=== PATIENT | female | born 1970 | race Caucasian/White ===

== ENCOUNTER 2018-01-31 00:31 | Outpatient (CLI) | payer MEDICAID, SELFPAY ==
--- NOTE | 2018-01-31 08:47 | DI.MAMMO_ITS ---
SYMPTOM/DIAGNOSIS: SCREENING, [facility], Z00.00 MAMMOGRAMS: Mammograms were interpreted according to the usual protocol including computer analysis with CAD system, tomosynthesis and C view imaging. The breast tissue is of moderate radiodensity. There is no evidence of a mass. There are no suspicious calcifications and there has been no significant interval change when compared with prior images. SUMMARY: No evidence of malignancy, category 1. Yearly screening mammography is recommended. Breast density, category B. SA ASSESSMENT OF FINDINGS: Negative. Category 1. Patient will receive a letter notifying them of these results. BI-RADS category B. There are scattered areas of fibroglandular density.
== END 2018-01-31 00:51 ==
PROVIDERS: PCP Family Medicine; Visit Provider Family Medicine
DX: Z12.31 Encounter for screening mammogram for malignant neoplasm of breast (principal)
CPT/HCPCS: 77063; 77067

== ENCOUNTER 2018-01-31 12:31 | Outpatient (REF) | payer MEDICAID, SELFPAY ==
--- NOTE | 2018-01-31 15:00 | PAPFT_PTH ---
PATIENT: Perla Pineda LOC: NCN #:[id number] AGE/SX: 47/F ROOM: RE01/31/[address]: Viv Simental V : 1970 BED: DIS: 01/31/2018 SPEC #: [id number] RECD: 02/01/18 13:02 STATUS: AWILDA MENDOZA #: [id number] SHEYLA: 01/31/18 15:[address]: Viv Simental V DEPT: [facility] Cytology RECD BY: Chacha Sterling Tissues: 1 - CX/ENDOCX FOR PAP SMEARS Procedures: PAP THIN PREP/UVM Screening HPV DNA PROBE Comments: [id number]
== END 2018-01-31 12:51 ==
LOC: NCHCN 12:31
PROVIDERS: PCP Family Medicine; Visit Provider Family Medicine
DX: Z12.4 Encounter for screening for malignant neoplasm of cervix (principal); Z11.51 Encounter for screening for human papillomavirus (HPV); Z01.419 Encounter for gynecological examination (general) (routine) without abnormal findings
CPT/HCPCS: 88142; 87624

== ENCOUNTER 2019-02-03 19:31 | Emergency (ER) | payer MEDICAID, SELFPAY ==
[2019-02-03 19:37] VITALS: BP 159/99; PULSE 99; RESP 16; TEMP 36.5; O2SAT 98
--- NOTE | 2019-02-03 20:02 | ED.GENADUL_ITS ---
Discharge Plan Disposition Patient Disposition: HOME Condition: Good Discharge Details Chief Complaint: RespSymp Clinical Impression: Cough Primary Care Provider: Viv Simental V ED Provider: Argenis Lovell Home Meds and New Rx's Prescriptions: New benzonatate [Tessalon Perles] 100 mg capsule 100 mg PO TID PRN (Reason: cough) Qty: 14 RF: 0 Discharge Instructions Instructions: Benzonatate (By mouth), Albuterol (By breathing), Acute Cough (ED) Additional Instructions: Encourage hydration. Tylenol and ibuprofen as needed for discomfort. You may use the albuterol inhaler 2 puffs every 6 hours as needed for wheezing or feeling tight. May use the Tessalon Perles 100 mg every 8 hours as needed for cough. If you develop difficulty breathing, shortness of breath, rule to stay hydrated or the new/worsening symptoms please seek care urgently once again. Otherwise, please follow-up with primary care in 1 week if not improved. Referrals: Viv Simental MD [Primary Care Provider] - Medical Decision Making Patient is a 48-year-old otherwise healthy female presents today with chief complaint of cough x3 days. Denies any fevers or chills. Is not feeling short of breath. States the cough is worse when lying supine at night when she first wakes in the morning. States she has multitude of his sick contacts, patient does own a daycare. She endorses some upper abdominal discomfort with cough but feels this is muscular. Is not having any symptoms of abdominal pain at this time. No difficulty breathing, no chest pain. Denies any HEENT complaints. On exam, lungs are clear. She apperas nontoxic. Her symptoms of feeling tight with personal question of diagnosis of asthma, has been wondering if she may benefit from albuterol inhaler. Will send home with albuterol inhaler with spacer, nursing to do instructions. We discussed the usage of this. Also prescribe Tessalon Perles to help with symptomatic management. Encourage hydration. She is given strict return precautions. All of her questions and concerns were addressed she is in agreement this plan she will follow-up with her primary if not improving in 1 week. HPI General Mode of arrival: ambulatory . Date/Time Provider Initiated Documentation: 02/03/19 20:02 . Limitations to Documentation: no limitations . Information obtained by: patient, family (son) and RN notes reviewed . History of Present Illness 48 year old F presents to the emergency department with the chief complaint of cough, described as mild, Quality is described as aching (associates muscle pain in upper abdomen with coughing, no pain now), Patient started experiencing this day(s) (3) and it has been constant. No relieving factors improve symptom(s), Other factors that worsen symptoms (worse laying supine and when first waking up in the morning) . Patient notes cough and shortness of breath (reports feeling tight when coughing episodes); denies chest pain, diaphoresis, fever/chills, headaches, loss of appetite, nausea/vomiting, rash and weakness. Patient did receive the following treatments prior to arrival, none Related Data Home Medications Medication Instructions Recorded Confirmed benzonatate [Tessalon Perles] 100 mg PO TID PRN #14 cap 02/03/19 Previous Rx's Medication Instructions Recorded benzonatate [Tessalon Perles] 100 mg PO TID PRN #14 cap 02/03/19 Allergies Allergy/AdvReac Type Severity Reaction Status Date / Time No Known Allergies Allergy Unverified 02/03/19 19:40 General Stated Complaint: RespSymp SUSHANT: 4 Review of Systems Constitutional Constitutional: Reports as per HPI and Denies headache(s) Eyes Eyes: Reports as per HPI, Denies eye discharge and Denies irritation ENT Ears, Nose, Mouth, and Throat: Reports as per HPI and Denies headache(s) Cardiovascular Cardiovascular: Reports as per HPI, Denies chest pain and Denies dyspnea Respiratory Respiratory: Reports as per HPI and Denies dyspnea Gastrointestinal Gastrointestinal: Reports as per HPI, Denies abdominal pain, Denies change in bowel habits, Denies nausea and Denies vomiting Integumentary/Breasts Skin/Breast: Reports as per HPI and Denies rash Neurologic Neurologic: Reports as per HPI and Denies headache(s) [facility] Social History Smoking/Tobacco Use Status: Never Alcohol Intake: current Alcohol Intake frequency: a few times a month Substance use type: does not use Do you feel safe at home: Yes Do you feel safe in your relationship?: Yes Exam Const General: cooperative, healthy appearing, comfortable, no acute distress, well developed and well groomed Nutritional Appearance: well nourished and overweight Orientation: alert and awake [facility] Head: normal to inspection, normocephalic and atraumatic Ears: hearing grossly normal bilaterally, external ears normal and TM's normal bilaterally General nose exam: external nose normal and nares normal Face and sinus: normal facial exam, sinuses nontender and face symmetric Mouth: oral mucosae normal, lip normal, tongue normal, oropharynx normal and moist mucous membranes Teeth and gingiva: dentition normal Throat: posterior oropharynx normal, tonsils normal and uvula midline Eyes General: appearance normal, both eyes and all related structures Neck Neck: normal visual inspection, full ROM, no lymphadenopathy and no meningeal signs Resp Effort & Inspection: normal respiratory effort, able to speak in complete sentences and no respiratory distress Auscultation: clear to auscultation bilaterally, no rales, no rhonchi and no wheezes Cardio Rate: regular rate Rhythm: regular rhythm Heart Sounds: S1 normal and S2 normal Skin General skin exam: no rashes or lesions noted Neuro General: alert and awake Cognition: normal cognition Speech: speech normal Gait: normal gait Psych Appearance: grossly normal and well kempt Mental Status: mental status grossly normal Speech and Movement: speech and movement normal Course Vital Signs Vital signs: Vital Signs Temperature 36.5 C 02/03/19 19:37 Pulse 99 H 02/03/19 19:37 Respiratory Rate 16 02/03/19 19:37 Blood Pressure 159/99 H 02/03/19 19:37 Pulse Oximetry 98 02/03/19 19:37 Temperature 36.5 C 02/03/19 19:37 Temperature Source Skin 02/03/19 19:37 Pulse 99 H 02/03/19 19:37 Respiratory Rate 16 02/03/19 19:37 Respiratory Effort Non-Labored 02/03/19 19:42 Respiratory Depth Normal 02/03/19 19:42 Blood Pressure 159/99 H 02/03/19 19:37 Blood Pressure Position Sitting 02/03/19 19:37 Pulse Oximetry 98 02/03/19 19:37 Oxygen Delivery Method Room Air 02/03/19 19:37 Oxygen Flow Rate 0 02/03/19 19:37 Pain Level 0 02/03/19 19:37
[2019-02-03] MEDS: Benzonatate 100 MG CAP 200 MG PO (20:39)
[2019-02-03] MEDS: Albuterol HFA 8 GM 60 PUFF INH IH (20:39)
== END 2019-02-03 20:45 | disposition home or self-care (01) ==
PROVIDERS: Emergency Provider Physician Assistant; PCP Family Medicine
DX: R05 Cough (principal)
CPT/HCPCS: 99283

== ENCOUNTER → 2021-11-30 00:28 | Outpatient (CLI) | payer MEDICAID, SELFPAY ==
--- NOTE | 2021-11-30 17:50 | DI.MAMMO_ITS ---
Exam(s) MAMMO SCREENING EXAM: MAMMO SCREENING CLINICAL HISTORY: SCREENING FOR BREAST CA, Z12.31, [facility], Z00.00. TECHNIQUE: Bilateral full field digital CC and MLO mammographic images were obtained with 3D tomosyn thesis and utilizing computer aided detection (CAD). COMPARISON: Prior mammograms were reviewed, the most recent being 2018. FINDINGS: There has been no significant change in the appearance and distribution of the fibroglandular tissue There are no new spiculated masses nor malignant appearing microcalcification groups. There is no significant architectural distortion nor skin thickening-retraction. IMPRESSION: No radiographic evidence of malignancy. BI-RADS Category 1 - Negative Breast Density - Category B - Scattered areas of fibroglandular density Breast density Category C or D implies that the patient has dense breast tissue. Dense breast tissue can make it harder to find cancer on a mammogram. Dense breast tissue is also associated with an incr eased risk of breast cancer. This information about the result of the mammogram report was provided to the patient to raise their awareness. Use this report when you speak with the patient about their risks for breast cancer, which includes their family history. At that time, you may recommend additional screening tests (Ultrasoun d or MRI) as these tests may add significant information. A negative radiographic report should not delay biopsy if a dominant or clinically suspicious mass is present. Up to ten percent of cancers are not identified on mammography. A negative report may reinforce clinical impression. Adenosis and dense breasts may obscure an underlying neoplasm. False positive reports average 6 to 10%. Patient will receive a letter notifying them of these results.
== END ==
PROVIDERS: PCP Family Medicine; Visit Provider Family Medicine
DX: Z12.31 Encounter for screening mammogram for malignant neoplasm of breast (principal)
CPT/HCPCS: 77063; 77067

== ENCOUNTER 2022-05-07 04:37 | Emergency (ER) | payer MEDICAID, SELFPAY ==
[2022-05-07 05:00] VITALS: BP 143/98; PULSE 110; RESP 18; TEMP 37.1; O2SAT 97
--- NOTE | 2022-05-07 05:00 | DI.RAD_ITS ---
Exam(s) XR PORTABLE CHEST AP EXAM: XR PORTABLE CHEST AP CLINICAL HISTORY: cough, sob, eval for pneumonia. TECHNIQUE: 2D digital imaging was performed. COMPARISON: No exams were available for comparison FINDINGS: Single AP portable view. Heart size is upper normal. The mediastinum is not widened. Lungs are clear. No infiltrates nor obvious pleural effusions. IMPRESSION: No acute pulmonary findings on this single AP portable view of the chest. DATA REPOSITORY: RADIATION DOSE DELIVERED:
--- NOTE | 2022-05-07 05:13 | ED.GENADUL_ITS ---
Discharge Plan Disposition Patient Disposition: Home Condition: Good Discharge Details Clinical Impression: Acute upper respiratory infection Primary Care Provider: Viv Simental V ED Provider: Carlos Rosario Home Meds and New Rx's Prescriptions: New doxycycline hyclate 100 mg tablet 100 mg PO BID Qty: 20 0RF No Action benzonatate [Tessalon Perles] 100 mg capsule 100 mg PO TID PRN (Reason: cough) Qty: 14 0RF Discharge Instructions Instructions: Upper Respiratory Infection (ED) Additional Instructions: At this time your chest x-ray shows no evidence of significant pneumonia. Your symptoms are likely secondary to a component of mild bronchitis. Please take the Symbicort inhaler that has been prescribed to you. It is been sent to your pharmacy on file. If you have continued or worsening cough over the next 48 to 72 hours then please take the antibiotic as directed. Otherwise hold off on using the antibiotics. If you notice any worsening of your symptoms, or any new symptoms such as vomiting, diarrhea, fever, chills, shortness of breath, chest pain, numbness, weakness, or fainting , please return immediately to the emergency department for reevaluation. Please follow up with your primary care provider as soon as possible for reassessment and reevaluation. As always, it was a pleasure participating in your medical care today. Referrals: Viv Simental MD [Primary Care Provider] - Discharge Data Discharge Date/Time-TO BE ENTERED AT DEPARTURE: 05/07/22 06:48 Medical Decision Making 51-year-old female with no significant past medical history presents today for evaluation of cough for the last 14 days. 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 She did receive her flu shot this year. She states that her symptoms lasted about a week and have now been getti ng better over the last week. However she has noted that she has developed a slightly worsening cough over the last 24 to 48 hours with mild productivity. She denies any fever or chills, she denies any chest pain. No other complaints at this time. No other modifying factors. She denies any cardiac history or long trips, surgeries, procedures or history of blood clots. Exam demonstrates well-appearing female, stable vital signs, minimal right upper middle lobe wheeze. No crackles or rales otherwise. No other abnormalities noted on exam. We will get a portable chest x-ray to evaluate for pneumonia, monitor closely and reassess. Patient otherwise notably stable. Symptoms appear consistent with improving illness. 7:21 AM X-rays negative for acute process, patient is feeling better. COVID flu and RSV test is negative. I do feel that patient's symptoms have a component of reactive airway disease, but also I suspect she may be having an early development of pneumonia that is just not present radiographically. We will send the patient home within Symbicort inhaler, as well as a prescription to doxycycline to use if her symptoms do not improve in the next 48 to 70 hours. Discussed red flags which to return. I have extensively reviewed the treatment plan and discharge instructions with the patient and their family. I have addressed all patient concerns at this time. The patient and family was made aware of what symptoms to monitor for that would warrant a return to the emergency department. Discussed the plan with the patient and family, they demonstrate verbal understanding and agreement with our assessment and plan at this time. The documentation in this chart was dictated using [employer] dictation software. Please excuse any dictation errors. FINDINGS: Lungs: The lung parenchyma is clear. Pleural spaces: No pneumothorax. No pleural effusion. Heart/Mediastinum: The cardiomediastinal silhouette is within normal limits. Bones/joints: Unremarkable. IMPRESSION: No acute cardiopulmonary abnormality. Thank you for allowing us to participate in the care of your patient. Dictated and Authenticated by: Kaleb Armendariz MD 05/07/2022 6:19 AM Eastern Time ([place] & [place]) HPI General Date/Time Provider Initiated Documentation: 05/07/22 04:43 . HPI Narrative: 51-year-old female with no significant past medical history presents today for evaluation of cough for the last 14 days. 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 She did receive her flu shot this year. She states that her symptoms lasted about a week and have now been getting better over the last week. However she has noted that she has developed a slightly worsening cough over the last 24 to 48 hours with mild productivity. She denies any fever or chills, she denies any chest pain. No other complaints at this time. No other modifying factors. She denies any cardiac history or long trips, surgeries, procedures or history of blood clots. Related Data Home Medications Medication Instructions Recorded Confirmed benzonatate 100 mg capsule 100 mg PO TID PRN cough #14 caps 02/03/19 (Tessalon Perlleisa) doxycycline hyclate 100 mg tablet 100 mg PO BID #20 tabs 05/07/22 Previous Rx's Medication Instructions Recorded benzonatate 100 mg capsule 100 mg PO TID PRN cough #14 caps 02/03/19 (Tessalon Perlleisa) doxycycline hyclate 100 mg tablet 100 mg PO BID #20 tabs 05/07/22 Allergies Allergy/AdvReac Type Severity Reaction Status Date / Time No Known Allergies Allergy Unverified 02/03/19 19:40 General Stated Complaint: RespSymp SUSHANT: 3 Review of Systems All systems reviewed & are unremarkable except as noted in HPI and below PFSH All Active Problems (Updated 05/07/22 @ 06:07 by Carlos Rosario DO) Acute upper respiratory infection (Acute) Social History Smoking/Tobacco Use Status: Never Smoking risk assessment performed?: Yes Alcohol Intake: current Alcohol Intake frequency: a few times a month Drug use: Never Substance use type: does not use Do you feel safe at home: Yes Do you feel safe in your relationship?: Yes Exam Narrative Exam Narrative: 1.Const: Well-nourished, Well-developed, appearing stated age 2.Eyes: PERRL, no conjunctival injection, and symmetrical lids. 3.ENT: Atraumatic external nose and ears. Moist MM. Neck: Symmetric, trachea midline, No thyromegaly. 4.CVS: +S1/S2, No murmurs or gallops. Peripheral pulses 2+ and equal in all extremities. Brisk capillary refill in all extremities. 5.RESP: Unlabored respiratory effort. Minimal right upper lobe wheeze, no crackles or rales otherwise. 6.GI: Soft, Nontender/Nondistended, No hepatosplenomegaly. No guarding or rebound. 7.MSK: Normocephalic/Atraumatic, Extremities w/o deformity or ttp No cyanosis or clubbing, Normal movement of all extremities 8.Skin: Warm, Dry. No rashes or lesions. 9.Neuro: education and outreach coordinator II-XII grossly intact. Sensation grossly intact, no focal neurologic deficits. 10.Psych: (AAO) x3. Appropriate mood and affect Course Vital Signs Vital signs: Vital Signs Temperature 37.1 C 05/07/22 05:00 Pulse 110 H 05/07/22 05:00 Respiratory Rate 18 05/07/22 05:00 Blood Pressure 143/98 H 05/07/22 05:00 Pulse Oximetry 97 05/07/22 05:00 Temperature 37.1 C 05/07/22 05:00 Temperature Source Temporal Artery Scan 05/07/22 05:00 Pulse 110 H 05/07/22 05:00 Respiratory Rate 18 05/07/22 05:00 Respiratory Effort Non-Labored 05/07/22 05:05 Blood Pressure 143/98 H 05/07/22 05:00 Pulse Oximetry 97 05/07/22 05:00 Oxygen Delivery Method Room Air 05/07/22 05:00 Oxygen Flow Rate 0 05/07/22 05:00
[2022-05-07 05:54] LABS: COVID-19 PCR Negative (Negative); Influenza A PCR Negative (Negative); Influenza B PCR Negative (Negative); RSV PCR Negative (Negative)
[2022-05-07 05:57] LABS: Source Nasopharynx
--- NOTE | 2022-05-07 06:20 | DI.VRAD_ITS ---
PROCEDURE INFORMATION: Exam: XR Chest Exam date and time: 05/07/2022 4:57 AM Age: 51 years old Clinical indication: Cough and shortness of breath TECHNIQUE: Imaging protocol: Radiologic exam of the chest. Views: 1 view. COMPARISON: No relevant prior studies available. FINDINGS: Lungs: The lung parenchyma is clear. Pleural spaces: No pneumothorax. No pleural effusion. Heart/Mediastinum: The cardiomediastinal silhouette is within normal limits. Bones/joints: Unremarkable. IMPRESSION: No acute cardiopulmonary abnormality. Dictated and Authenticated by: Kaleb Armendariz MD. Ordering:PABLO Gonzalez MD
[2022-05-07 06:35] VITALS: BP 143/80; PULSE 94; RESP 20; O2SAT 97
--- NOTE | 2022-05-07 09:44 | NUR.NOTE ---
Nursing Note: Accessed pt chart for Fluvid results.
== END 2022-05-07 06:48 | disposition home or self-care (01) ==
PROVIDERS: Emergency Provider Student in an Organized Health Care Education/Training Program; PCP Family Medicine
DX: J06.9 Acute upper respiratory infection, unspecified (principal); Z20.822 Contact with and (suspected) exposure to COVID-19
CPT/HCPCS: 87637; 94640; 99283; 71045; 99284

== ENCOUNTER 2022-06-23 15:32 | Outpatient (REF) | payer MEDICAID, SELFPAY ==
--- NOTE | 2022-06-23 14:30 | PAPFT_PTH ---
PATIENT: Perla Pineda LOC: [facility] U#:[id number] AGE/SX: 51/F ROOM: RE06/23/[address]: Viv Simental V : 1970 BED: DIS: 06/23/2022 SPEC #: [id number] RECD: 06/23/22 18:38 STATUS: AWILDA REEben #: [id number] SHEYLA: 06/23/22 14:[address]: Viv Simental V DEPT: [facility] Cytology RECD BY: Chacha Sterling Tissues: 1 - CX/ENDOCX FOR PAP SMEARS Procedures: PAP THIN PREP/UVM Screening HPV DNA PROBE Comments: [id number]
== END 2022-06-23 15:33 | disposition home or self-care (01) ==
LOC: LBN 15:32
PROVIDERS: PCP Family Medicine; Visit Provider Family Medicine
DX: Z12.4 Encounter for screening for malignant neoplasm of cervix (principal); Z11.51 Encounter for screening for human papillomavirus (HPV)
CPT/HCPCS: 88142; 87624

== ENCOUNTER 2022-09-29 14:54 | Outpatient (REF) | payer MEDICAID, SELFPAY ==
[2022-09-29 15:57] LABS: ALT 26 U/L (14-59); AST 22 U/L (15-37); Albumin 3.9 g/dL (3.4-5.0); Alkaline Phosphatase 80 U/L (46-116); Anion Gap 10.2 mmol/L (3-11); BUN 13 mg/dL (7-18); CO2 27.8 mmol/L (21.0-32.0); CREATININE 0.7 mg/dL (0.55-1.02); Calcium 9.5 mg/dL (8.5-10.1); Calculated LDL 151 mg/dL (<100); Chloride 104 mmol/L (98-107); Cholesterol 232 mg/dL (<200); Glucose 127 mg/dL (74-106); HDL Cholesterol 43 mg/dL (40-60); Sodium 142 mmol/L (136-145); Total Protein 8.1 g/dL (6.4-8.2); Triglyceride 194 mg/dL (<150)
== END 2022-09-29 14:55 | disposition home or self-care (01) ==
LOC: NCHCN 14:54
PROVIDERS: PCP Family Medicine; Visit Provider Family Medicine
DX: E11.9 Type 2 diabetes mellitus without complications (principal); R03.0 Elevated blood-pressure reading, without diagnosis of hypertension
CPT/HCPCS: 80053; 80061

== ENCOUNTER 2023-05-08 15:01 | Outpatient (REF) | payer BC, SELFPAY ==
[2023-05-08 17:23] LABS: Hemoglobin A1C 5.7 % (<5.7)
[2023-05-08 17:25] LABS: Calculated LDL 148 mg/dL (<100); Cholesterol 263 mg/dL (<200); HDL Cholesterol 50 mg/dL (40-60); Triglyceride 327 mg/dL (<150)
== END 2023-05-08 15:02 | disposition home or self-care (01) ==
LOC: NCHCN 15:01
PROVIDERS: PCP Family Medicine; Visit Provider Family Medicine
DX: E11.9 Type 2 diabetes mellitus without complications (principal); I10 Essential (primary) hypertension
CPT/HCPCS: 80061; 83036